=== PATIENT | male | born 1950 | race Caucasian/White ===

== ENCOUNTER → 2019-09-16 | Outpatient (CLI) | payer OTHER ==
[~2019-09-16] MED LIST: ASPIRIN EC81 M1 PO; DIABETA 5MG TABL5 MG PO; GLUMETZA500; HYDROCHLOROTHIA25 M2 PO; LISINOPRIL40 MG PO; MEVACOR40 MG PO; NORVASC 5 MG TAB5 MG PO
== END ==
LOC: ULTRA 11:37
DX: I73.9 Peripheral vascular disease, unspecified (principal); I10 Essential (primary) hypertension; E11.9 Type 2 diabetes mellitus without complications

== ENCOUNTER 2020-09-09 11:13 | Inpatient (IN) | payer MEDICARE, OTHER ==
[~2020-09-09] VITALS: Ht 170.2 cm; Wt 95.3 kg
[2020-09-09 11:13] VITALS: BP 160/100
[2020-09-09 12:28] LABS: HEMOGLOBIN 15.6 gm/dL (14.0-18.0); MCV 85.2 fL (80.0-100.0)
[2020-09-09 12:32] LABS: HEMATOCRIT 45.1 % (42.0-52.0); MCH 29.5 pg (26.0-34.0); MCHC 34.6 g/dL (28.0-37.0); RBC 5.29 mil/uL (4.50-6.00); RDW 13.5 % (10.5-14.5); WBC 14.8 thou/uL (4.0-11.0)
[2020-09-09 12:39] LABS: ALBUMIN 3.5 g/dL (3.4-5.0); CREATININE 1.4 mg/dL (0.7-1.3); DIRECT BILIRUBIN 0.3 mg/dL (<0.1-0.2); POTASSIUM 4.3 mmol/L (3.5-5.1); TOTAL BILIRUBIN 0.8 mg/dL (0.2-1.0); TOTAL PROTEIN 8.1 g/dL (6.4-8.2)
[2020-09-09 12:40] LABS: CALCIUM 9.5 mg/dL (8.5-10.1)
[2020-09-09 13:04] LABS: ABSOLUTE NEUTROPHILS 11.5 thou/uL (1.4-8.2)
[2020-09-09 13:08] LABS: PLATELET COUNT 165 thou/uL (150-400)
[2020-09-09 17:14] LABS: URINE BILIRUBIN NEGATIVE (Negative); URINE BLOOD 1+ (Negative); URINE CLARITY CLEAR; URINE COLOR YELLOW; URINE GLUCOSE-RANDOM* TRACE (Negative); URINE KETONES NEGATIVE (Negative); URINE LEUKOCYTES-REFLEX NEGATIVE (Negative); URINE NITRITE-REFLEX NEGATIVE (Negative); URINE PROTEIN (DIPSTICK) 1+ (Negative)
[2020-09-09 17:31] LABS: BACTERIA-REFLEX None Seen /HPF (None Seen); CASTS None Seen /LPF (None Seen); CRYSTALS None Seen /LPF (None Seen); SQUAMOUS 0-3 Few /LPF (0-3); URINE RBC 0-2 Rare /HPF (0-2); URINE WBC-REFLEX 0-5 Rare /HPF (0-5)
[2020-09-09 19:05] VITALS: BP 110/62
[2020-09-09 19:55] VITALS: BP 178/86
[2020-09-09 20:15] VITALS: BP 154/63
[2020-09-09 20:27] LABS: BE(vivo) -3.3 mmol/L (-2 to +3); HCO3 19.5 mmol/L (22.0-26.0); PCO2 29.4 mmHg (35.0-45.0); PO2 94.3 mmHg (80.0-100.0); sO2 97.5 % (92.0-98.0)
[2020-09-09 20:30] VITALS: BP 152/86
--- NOTE | 2020-09-09 20:46 | NUR ---
SEE ANALYTICAL TECHNICIAN FLOWSHEET. PT REPORTEDLY UNAROUSABLE EVEN WITH VIGOROUS STERNAL RUB. ACCUCHECK 25. FULL AMP DEX 50% GIVEN IV. THIS WAS DONE PTS SPONTANEOUS RESPIRATIONS STOPPED AND RT BEGAN BMV. MOMENTARILY PTS SPONTANEOUS REPIRATIONS RESUMED AND VERY SHORTLY HE BEGAN TO OPEN HIS EYES. (CODE ISMAEL WAS CALLED WHEN RESP STOPPED). ER PHYSICIAN RESPONDED, UPDATED ON PT CONDITION. CODE BLUE STOPPED, RESUMED WITH ANALYTICAL TECHNICIAN. SEE CHARTING, IVF CHANGED AND HOURLY ACCUCHECKS UNTIL MIDNIGHT PER NURSERY TECHNICIAN.
--- NOTE | 2020-09-09 23:12 | NUR ---
PT TRANSFERRED FROM ED. PT ARRIVED ON CART HEAVY SNORE, INCONTINENT OF URINE, PT NOT RESPONDING TO VERBAL INTERACTIONS OR PHYSICAL TOUCH. O2 PER NC 3L. RAPID RESPONSE CALLED. PT FSBS 25. D50 PROVIDED. PT STARTED TO AROUSE, FSBS DID INCREASE TO 191. PT DID STOP BREATHING DURING RAPID RESPONSE AND CODE BLUE CALLED. PTS BREATHING RETURNED WITH PHYSICAL STIMULATION. O2 PER NC 4L. PLACED ON D5NS. PT CONTINUED TO AROUSE A0X4, ADMISSION PROCESS COMPLETED. PT HAS NO TEETH. NURSE CALLED PTS SISTER PER HIS REQUEST AND LEFT VOICE MAIL REGARDING CHANGE IN CONDITION. MONITORING FSBS HOURLY UNTIL MN. PT STATES HE DOES NOT KNOW THE NAME OF THE MEDICATION HE TAKES OR THE REASON HE TAKES IT. WILL HAVE DAY NURSE CALL SISTER IN AM FOR NAMES OF MEDICATION. PT REPORTS HIS SISTER IS A DIALYSIS PATIENT. BED ALARM ON.
[2020-09-09 23:44] VITALS: BP 143/89
--- NOTE | 2020-09-09 23:49 | NUR ---
PTS FSBS TRENDING DOWN, WILL CONTINUE TO MONITOR HOURLY. PROVIDER NOTIFIED.
[2020-09-10 03:09] VITALS: BP 135/76
[2020-09-10 05:46] LABS: CALCIUM 8.2 mg/dL (8.5-10.1); CREATININE 1.1 mg/dL (0.7-1.3)
[2020-09-10 07:41] VITALS: BP 129/62
--- NOTE | 2020-09-10 10:36 | NUR ---
VASCULAR ACCESS NURSE ROUNDING AND NOTED MIDLINE ORDER, SPOKE TO WONG YOON AND SHE SAID MIDLINE WAS NOT NECESSARY AT THIS TIME. I WILL RETURN TO PLACE LINE IF STATUS CHANGES.
[2020-09-10 11:25] VITALS: BP 142/79
[2020-09-10 15:27] VITALS: BP 141/77
--- NOTE | 2020-09-10 19:09 | NUR ---
ASSUMED PATIENT CARE AT 0700. A/O 2-3. SOB WITH EXERTION. VSS. WILLEP MONITOR.
[2020-09-10 21:03] VITALS: BP 116/63
--- NOTE | 2020-09-10 23:47 | NUR ---
PT WATCHING TV IN BED. O2 PER NC 6L. PT HAS LOOSE COUGH. SNACK PROVIDED. REMDESIVIR STARTED. PT HAD STOOL INCONTINENT. BED ALARM ON.
[2020-09-11 03:54] VITALS: BP 131/70
[2020-09-11 05:33] LABS: FIBRINOGEN 423.8 mg/dL (210-360); INR 1.1; PROTIME 11.1 Seconds (9.3-11.4)
[2020-09-11 05:43] LABS: ABSOLUTE NEUTROPHILS 5.1 thou/uL (1.4-8.2); EOSINOPHILS 0.1 % (0.0-3.0); MCH 28.9 pg (26.0-34.0); MCHC 33.9 g/dL (28.0-37.0); MCV 85.2 fL (80.0-100.0); MONOCYTES 7.1 % (1.0-8.0); POLYS 80.8 % (36.0-66.0); RBC 4.57 mil/uL (4.50-6.00); RDW 13.4 % (10.5-14.5); WBC 6.4 thou/uL (4.0-11.0)
[2020-09-11 05:46] LABS: ALBUMIN 2.6 g/dL (3.4-5.0); CALCIUM 8.5 mg/dL (8.5-10.1); CREATININE 1.2 mg/dL (0.7-1.3); DIRECT BILIRUBIN 0.1 mg/dL (<0.1-0.2); POTASSIUM 4.1 mmol/L (3.5-5.1); TOTAL BILIRUBIN 0.5 mg/dL (0.2-1.0); TOTAL PROTEIN 6.7 g/dL (6.4-8.2)
[2020-09-11 06:08] LABS: HEMOGLOBIN 13.2 gm/dL (14.0-18.0); PLATELET COUNT 245 thou/uL (150-400)
[2020-09-11 08:36] VITALS: BP 146/86
--- NOTE | 2020-09-11 09:49 | NUR ---
wound consult; A RASH IS PRESENT ON THE CHAEST AND UPPER BACK, POSSIBLY A DRUG REALATED RASH. THE PATIENT DENIES PRURITUS. RECOMMEDNATIONS; REFER TO PRIMARY DOCTOR.
--- NOTE | 2020-09-11 12:40 | NUR ---
Chart reviewed and case discussed with the care team. Pt is currently in enhanced ISO on the Covid unit d/t + test results. Width Stripper attempted to reach the pt via phone with no answer. Width Stripper was able to speak with his sister/emergency contact Michelle. Michelle reports that they live together in a first floor apt with no steps. She does the driving to appts and the grocery store. The pt is normally indep with gait and adl's and does not have any DME in place at home. She notes his pcp is Dr. Gamal Parr and he last saw him on 08-29-20. She herself is a dialysis pt and she is awaiting her Covid test results. She is not aware of any positive contacts and reports that they do not go out very much. She denies any history of HH services. She is concerned about exposure and hopes he is able to stay here for his quarentine period. He is on 4-6 liters of O2 and getting his second dose of Remdesivir today. CM role introduced and support provided. She indicates they would be open to home o2 or Hh referrals at [place] if needed and would use any in network provider with no preference. Will follow along should DME or HH be indicated at [place].
[2020-09-11 16:04] VITALS: BP 121/68
[2020-09-11 19:39] VITALS: BP 147/72
[2020-09-12 03:29] VITALS: BP 142/75
--- NOTE | 2020-09-12 05:03 | NUR ---
PT MAKING SLOW PROGRESS TOWARD GOALS. PT HAS NON-PRODUCTIVE COUGH. ON O2 AT 4L PER NC. NOTED COARSNESS OF BREATH SOUNDS OVER RLL. SEE CHARTING.
[2020-09-12 06:14] LABS: ALBUMIN 2.7 g/dL (3.4-5.0); CREATININE 1.1 mg/dL (0.7-1.3); DIRECT BILIRUBIN 0.1 mg/dL (<0.1-0.2); TOTAL BILIRUBIN 0.4 mg/dL (0.2-1.0); TOTAL PROTEIN 6.9 g/dL (6.4-8.2)
[2020-09-12 07:53] VITALS: BP 143/72
[2020-09-12 11:23] VITALS: BP 129/64
--- NOTE | 2020-09-12 14:21 | NUR ---
PEGGY reviewed chart and spoke with nursing and attending physician. Pt remains in Enhanced Isolation due to COVID-19. Pt is afebrile and on 2L of O2. Pt is on IV abx and IV steoroids. Completing course of Remdesivir. PT/OT ordered to evaluate pt today. PEGGY placed call to pt's room. No answer. PEGGY spoke with pt's sister, Michelle, via phone. Update provided. SW discussed need for HH services and possible home O2. Pt's sister verbalized understanding. Options provided for HH and DME companies. No preference voiced. SW confirmed pt's home address and phone number. [facility] notified intake of new [facility] PEGGY faxed referral to [facility] for possible home O2. PEGGY is following to assist as needed with discharge planning.
[2020-09-12 15:22] VITALS: BP 136/73
[2020-09-12 19:46] VITALS: BP 150/77
[2020-09-13 04:00] VITALS: BP 171/66
--- NOTE | 2020-09-13 05:00 | NUR ---
PT MAKING PROGRESS TOWARDS GOALS. ON O2 AT 2L PER NC THROUGHOUT THE NIGHT. DENIED ANY SOA AT REST BUT DOES GET SOA WITH ACTIVITY. CONTINUES TO HAVE COARSE SOUNDS OVER THE RLL.
[2020-09-13 06:54] VITALS: BP 146/76
[2020-09-13 06:55] LABS: ALBUMIN 2.5 g/dL (3.4-5.0); DIRECT BILIRUBIN 0.1 mg/dL (<0.1-0.2); TOTAL BILIRUBIN 0.3 mg/dL (0.2-1.0); TOTAL PROTEIN 6.4 g/dL (6.4-8.2)
[2020-09-13 07:32] VITALS: BP 151/92
[2020-09-13 11:21] VITALS: BP 125/72
--- NOTE | 2020-09-13 14:33 | NUR ---
PEGGY reviewed chart and spoke with nursing and attending physician. Pt remains in Enhanced Isolation due to COVID-19. Pt is afebrile and on 2L of O2. Pt is on IV abx and completing course of Remdesivir. Plan is for pt to discharge home with Jae when medically stable. Rest/exercise oximetry will need to be ordered prior to discharge to determine if pt needs home O2. PEGGY placed call into pt's room. No answer. PEGGY is following to assist as needed with discharge planning.
[2020-09-13 15:35] VITALS: BP 155/89
--- NOTE | 2020-09-13 15:58 | NUR ---
ASSUMED CARE AT SHIFT CHANGE.PT A/O X 4, PLEASANT AND COOPERATIVE THROUGHOUT SHIFT. WORKED WITH THERAPY THIS MORNING AND DID BETTER AMBULATING TODAY WITH WALKER PER SAHRA. UP TO CHAIR FOR LUNCH. DENIES ANY PAIN OR SOA THIS SHIFT. PROGRESSING TOWARDS POC GOALS. VSS. WILL CONT TO MONITOR AND FOLLOW POC.
[2020-09-13 19:30] VITALS: BP 158/94
--- NOTE | 2020-09-13 23:28 | NUR ---
PT WAS OBSERVED SITTING IN THE RECLINER IN HIS ROOM AT SHIFT CHANGE.PT ALERT AND ORIENTED.PT UP WITH WALKER AND GAIT BELT TO THE BR,GOOD ENDURANCE NOTED.PT HAS NON PRODUCTIIVE COUGH.SPUTUM CULTURE NEEDED,PT NOT ABLE TO PROVIDE AT THIS TIME.PT'S JAZMINE AREA RED,Z GUARD APPLIED.PT CONT ON IV ABX.RASH NOTED ON HIS CHEST AND BACK.NO CONCERNS VOICED.PT BREATHING NORMAL AND NON LABORED.ENHANCED ISOLATION MAINTAINED.CALL LIGHT WITHIN REACH.
[2020-09-14 03:10] VITALS: BP 142/86
[2020-09-14 06:05] LABS: ALBUMIN 2.6 g/dL (3.4-5.0); DIRECT BILIRUBIN 0.1 mg/dL (<0.1-0.2); TOTAL BILIRUBIN 0.3 mg/dL (0.2-1.0); TOTAL PROTEIN 6.3 g/dL (6.4-8.2)
[2020-09-14 11:18] VITALS: BP 149/94
--- NOTE | 2020-09-14 14:10 | NUR ---
PEGGY reviewed chart and spoke with nursing and attending physician. Pt remains in Enhanced Isolation due to COVID-19. Pt is afebrile and on 2L of O2. Pt is on IV abx and completing course of Remdesivir. Discharge home with is anticipated for tomorrow. Pt will need rest/exercise oximetry to determine if pt needs home O2. Pt will need a script for walker. PEGGY placed call to pt's room. No answer. PEGGY spoke with pt's sister, Michelle, via phone to discuss discharge plan. Pt's sister is aware and agreeable with plan. Pt's sister will be able to provide transportation home for pt after her dialysis tomorrow. Michelle has dialysis from [id number]. PEGGY informed pt will go home with Jae , a roller walker and possible home O2 through [facility]. PEGGY updated Rhonda at and [facility] at [facility]. PEGGY contacted [facility] liaison of request for roller walker. PEGGY is following to assist as needed with discharge planning.
[2020-09-14 15:22] VITALS: BP 140/110
[2020-09-14 19:36] VITALS: BP 155/98
--- NOTE | 2020-09-15 02:15 | NUR ---
PT ALERT ANDORIENTED X4. VSS AFEBRTILE. UNLABORED ON 2 L NCIV RESTARTED RIGHT FA SINCE PREVIOUS IV INFILTRATED. NO C/O PAIN. NO S/S DISTRESS. INSTRUCTED PT TO NOT GET OOB WITHOUT HELP. BED ALARM ON. WILL CONTINUE TO MONITOR PT FOR CHANGES.
[2020-09-15 04:41] LABS: ALBUMIN 2.6 g/dL (3.4-5.0); CALCIUM 8.4 mg/dL (8.5-10.1); CREATININE 0.9 mg/dL (0.7-1.3); POTASSIUM 4.1 mmol/L (3.5-5.1); TOTAL BILIRUBIN 0.4 mg/dL (0.2-1.0); TOTAL PROTEIN 6.6 g/dL (6.4-8.2)
[2020-09-15 04:48] VITALS: BP 161/74
[2020-09-15 05:52] LABS: HEMATOCRIT 45.9 % (42.0-52.0); HEMOGLOBIN 15.7 gm/dL (14.0-18.0); MCHC 34.2 g/dL (28.0-37.0); MCV 84.6 fL (80.0-100.0); PLATELET COUNT 404 thou/uL (150-400); RBC 5.43 mil/uL (4.50-6.00); RDW 13.8 % (10.5-14.5); WBC 9.4 thou/uL (4.0-11.0)
--- NOTE | 2020-09-15 06:45 | NUR ---
PT RESTING QUIETLY. PROGRESSING WELL TOWARDS D/C GOALS TODAY. HE WILL GO HOME TODAY.
[2020-09-15 08:44] LABS: ABSOLUTE NEUTROPHILS 7.6 thou/uL (1.4-8.2); PLATELET ESTIMATE NORMAL
[2020-09-15] MEDS ORDERED: PEPCID20 MG PO (11:46)
[2020-09-15] MEDS ORDERED: TRADJENTA5 MG PO (11:46)
[2020-09-15] MEDS ORDERED: PREDNISONE 20 M20 MG PO (11:46)
[2020-09-15 12:32] VITALS: BP 152/86
[2020-09-15 13:25] VITALS: BP 152/86
--- NOTE | 2020-09-15 13:33 | NUR ---
DISCHARGE NOTE: PEGGY reviewed chart and spoke with nursing and attending physician. Pt is medically stable for discharge home today with HH services. Rest/exercise oximetry ordered to determine if pt needs home O2. PEGGY faxed finalized discharge orders/summary to [facility] and confirmed info was received with [facility] in intake. Awaiting rest/exercise oximetry test at this time. [facility] will provide portable O2 tank for discharge if needed. PEGGY spoke with pt's sister, Michelle, via phone to provide update and discuss discharge plan. Michelle is aware and agreeable with plan. Michelle will shrimp picker pt after she is done with dialysis around 1700 this evening. PEGGY explained that contact info for DME and HH will be placed in pt's discharge summary. [facility] liaison to deliver a roller walker to pt's room prior to discharge. PEGGY obtained script for walker. PEGGY is following to finalize discharge.
[2020-09-15 15:53] VITALS: BP 169/105
--- NOTE | 2020-09-15 17:44 | NUR ---
PATIENT TOLERATED ON RA. SOLWLY TOWARDS POC GOALS. DC TO HOME WITH HH.
== END 2020-09-15 17:47 | disposition home health service (06) | DRG 871 ==
LOC: ER 11:13 → EROBS 14:08 → 3W 14:08
PROVIDERS: Nurse Practitioner; Specialist; ADMIT Hospitalist; ATTEND Hospitalist
PROC: XW033E5 Introduction of Remdesivir Anti-infective into Peripheral Vein, Percutaneous Approach, New Technology Group 5 (ICD-10-PCS; principal; 2020-09-10)
DX: A41.89 Other specified sepsis (principal); U07.1 COVID-19; J12.9 Viral pneumonia, unspecified; J96.01 Acute respiratory failure with hypoxia; N17.0 Acute kidney failure with tubular necrosis; E87.1 Hypo-osmolality and hyponatremia; R65.20 Severe sepsis without septic shock; I10 Essential (primary) hypertension; E78.5 Hyperlipidemia, unspecified; E11.649 Type 2 diabetes mellitus with hypoglycemia without coma; Z79.82 Long term (current) use of aspirin; Z79.899 Other long term (current) drug therapy; Z23 Encounter for immunization
CPT/HCPCS: 10879